=== PATIENT | male | born 1945 | race Caucasian/White ===

== ENCOUNTER 2016-06-05 13:17 | Outpatient (CLI) | payer MEDICARE, OTHER | END 2016-06-05 13:18 | disposition home or self-care (01) | DX: M17.12 Unilateral primary osteoarthritis, left knee (principal); M16.0 Bilateral primary osteoarthritis of hip; M47.816 Spondylosis without myelopathy or radiculopathy, lumbar region; M47.817 Spondylosis without myelopathy or radiculopathy, lumbosacral region ==

== ENCOUNTER 2016-06-23 12:06 | Outpatient (CLI) | payer MEDICARE, OTHER | END 2016-06-23 12:07 | disposition home or self-care (01) | DX: M51.26 Other intervertebral disc displacement, lumbar region (principal); M51.36 Other intervertebral disc degeneration, lumbar region; M47.896 Other spondylosis, lumbar region; M51.37 Other intervertebral disc degeneration, lumbosacral region ==

== ENCOUNTER 2018-06-25 12:45 | Emergency (ER) | payer MEDICARE, OTHER ==
[2018-06-25 12:55] VITALS: BP 155/90
--- NOTE | 2018-06-25 13:05 | ED Physician Documentation ---
PD HPI LOWER EXT INJURY - Stated complaint Stated Complaint: KNEE PX - Chief complaint Chief Complaint: Trauma Ext - History obtained from History obtained from: Patient - History of Present Illness PD HPI LOW EXT INJURY LOCATION: Right (He was helping a friend yesterday, and his left leg went into a hole. His right leg twisted and he fell hitting his head and shoulder. He does not have a headache. There is no loss of consciousness. His shoulder does not really hurt. He does have pretty significant right knee pain although declines pain medication and also injured his second toe on the right. He is able to walk but barely.) Review of Systems Constitutional: reports: Reviewed and negative Throat: reports: Reviewed and negative Cardiac: reports: Reviewed and negative Respiratory: reports: Reviewed and negative PD PAST MEDICAL HISTORY - Allergies Allergies/Adverse Reactions: Allergies Allergy/AdvReac Type Severity Reaction Status Date / Time No Known Drug Allergies Allergy Verified 06/25/18 12:55 - Social History Does the pt smoke?: No Smoking Status: Never smoker PD ED PE NORMAL - Vitals Vital signs reviewed: Yes - General General: Alert and oriented X 3, No acute distress - HEENT HEENT: PERRL, EOMI - Neck Neck: Supple, no meningeal sign, No bony TTP - Extremities Extremities: Other (Left shoulder is nontender with full range of motion. There is a large effusion of the right knee and tender anteriorly and medially. He has pain with anterior and posterior drawer signs, but they are not lax, neither is the MCL or PCL. Negative grind testing. The tip of the right second toe is tender and bruised. There is no subungual hematoma.) - Neuro Neuro: Alert and oriented X 3, Normal speech Results - Vitals Vitals: Vital Signs - 24 hr 06/25/18 12:53 Temperature 37.0 C Heart Rate 82 Respiratory 18 Rate Blood Pressure 155/90 H O2 Saturation 99 Oxygen O2 Source Room air - Rads (name of study) X-rays of the right knee and right second toe Radiology: EMP read contemporaneously (No obvious fracture in the right knee, there is a large joint effusion. He has a nondisplaced fracture of the second distal phalanx of the right second toe.) PD MEDICAL DECISION MAKING - ED course ED course: This is a 72-year-old gentleman who fell yesterday and injured his right knee and right toe. He did hit his head, but there is no clinical evidence of ongoing issue there without headache or anticoagulation. The knee has a large effusion corroborated on x-ray, no obvious fracture. The toe is broken as well, conservative care and soto taping were advised for this. He was placed in a knee immobilizer and orthopedic follow-up was advised. He declined pain medication. Departure - Departure Disposition: 01 Home, Self Care Clinical Impression: Toe fracture, right Qualifiers: Encounter type: initial encounter Toe: lesser toe Fracture type: closed Phalanx: distal Fracture alignment: nondisplaced Qualified Code(s): S92.534A - Nondisplaced fracture of distal phalanx of right lesser toe(s), initial encounter for closed fracture Knee injury Qualifiers: Encounter type: initial encounter Laterality: right Qualified Code(s): S89.91XA - Unspecified injury of right lower leg, initial encounter Condition: Good Record reviewed to determine appropriate education?: Yes Instructions: ED Meniscal Injury Knee Poss Follow-Up: [facility] [Provider Group] - Within 1 week Comments: Wrap the toe or keep it supported as discussed. Follow-up with the orthopedic surgeon within the week, call today or tomorrow for an appointment. Keep the knee splint on when you are up and around, you do not need to wear it in bed or while showering.
--- NOTE | 2018-06-25 13:59 | XRAY Report ---
Reason: knee inj Procedure Date: 06/25/2018 Accession Number: [id number] / [id number] Procedure: XR - Knee 4 View RT CPT Code: FULL RESULT: EXAM: RIGHT KNEE RADIOGRAPHY EXAM DATE: 06/25/2018 01:23 PM. CLINICAL HISTORY: Knee inj. COMPARISON: KNEE 2 VIEW LT 06/05/2016 1:30 PM. TECHNIQUE: 4 views. FINDINGS: Bones: No acute fracture visualized. Joints: There is a large joint effusion. No dislocation. Moderate to severe tricompartmental joint space narrowing and osteophyte formation. Soft Tissues: Mild soft tissue swelling. IMPRESSION: 1. No acute fracture identified. Large joint effusion. 2. Moderate to severe degenerative changes. RADIA
--- NOTE | 2018-06-25 14:06 | XRAY Report ---
Reason: 2nd toe inj Procedure Date: 06/25/2018 Accession Number: [id number] / [id number] Procedure: XR - Toe(s) RT CPT Code: FULL RESULT: EXAM: RIGHT TOE RADIOGRAPHY EXAM DATE: 06/25/2018 01:23 PM. CLINICAL HISTORY: 2nd toe inj. COMPARISON: None. TECHNIQUE: 3 views. FINDINGS: Hammertoe deformities mildly limit the exam. There is a nondisplaced fracture of the dorsal aspect of the second distal phalanx near the base. No additional fracture identified. Mild degenerative changes of the interphalangeal joints. No dislocation. IMPRESSION: Nondisplaced fracture of the second distal phalanx. RADIA
== END 2018-06-25 14:29 | disposition home or self-care (01) ==
LOC: ED 12:45
DX: S89.91XA Unspecified injury of right lower leg, initial encounter (principal); M25.461 Effusion, right knee; S92.534A Nondisplaced fracture of distal phalanx of right lesser toe(s), initial encounter for closed fracture; X50.1XXA Overexertion from prolonged static or awkward postures, initial encounter
CPT/HCPCS: 73660; 99283

== ENCOUNTER 2022-04-17 09:25 | Outpatient (CLI) | payer MEDICARE, OTHER ==
[2022-04-17 14:48] LABS: THYROID STIMULATING HORMONE 1.1 uIU/mL (0.34-5.60)
[2022-04-17 14:49] LABS: FREE T4 (FREE THYROXINE) 1.1 ng/dL (0.58-1.64)
== END 2022-04-17 09:26 | disposition home or self-care (01) ==
LOC: LAB.S 09:25
PROVIDERS: ATTEND Internal Medicine Endocrinology, Diabetes & Metabolism
DX: E05.80 Other thyrotoxicosis without thyrotoxic crisis or storm (principal)
CPT/HCPCS: 36415; 84439; 84443; 84480

== ENCOUNTER 2023-07-30 08:54 | Outpatient (CLI) | payer MEDICARE, OTHER | END 2023-07-30 08:55 | disposition home or self-care (01) | LOC: LAB.S 08:54 | PROVIDERS: ATTEND Internal Medicine | DX: I48.91 Unspecified atrial fibrillation (principal) | CPT/HCPCS: 36416; 85610 ==

== ENCOUNTER 2023-08-02 08:58 | Outpatient (CLI) | payer MEDICARE, OTHER | END 2023-08-02 08:59 | disposition home or self-care (01) | LOC: LAB.S 08:58 | PROVIDERS: ATTEND Internal Medicine | DX: I48.91 Unspecified atrial fibrillation (principal) | CPT/HCPCS: 36416; 85610 ==

== ENCOUNTER 2023-08-13 11:30 | Outpatient (CLI) | payer MEDICARE, OTHER | END 2023-08-13 11:31 | disposition home or self-care (01) | LOC: LAB.S 11:30 | PROVIDERS: ATTEND Internal Medicine | DX: I48.91 Unspecified atrial fibrillation (principal) | CPT/HCPCS: 36416; 85610 ==

== ENCOUNTER 2023-08-20 08:57 | Outpatient (CLI) | payer MEDICARE, OTHER | END 2023-08-20 08:58 | disposition home or self-care (01) | LOC: LAB.S 08:57 | PROVIDERS: ATTEND Internal Medicine | DX: I48.91 Unspecified atrial fibrillation (principal) | CPT/HCPCS: 36416; 85610 ==

== ENCOUNTER 2023-09-03 09:04 | Outpatient (CLI) | payer MEDICARE, OTHER | END 2023-09-03 09:05 | disposition home or self-care (01) | LOC: LAB.S 09:04 | PROVIDERS: ATTEND Internal Medicine | DX: I48.91 Unspecified atrial fibrillation (principal) | CPT/HCPCS: 36416; 85610 ==

== ENCOUNTER 2023-09-26 08:41 | Outpatient (CLI) | payer MEDICARE, OTHER | END 2023-09-26 08:42 | disposition home or self-care (01) | LOC: LAB.S 08:41 | PROVIDERS: ATTEND Internal Medicine | DX: I48.91 Unspecified atrial fibrillation (principal) | CPT/HCPCS: 36416; 85610 ==

== ENCOUNTER 2023-10-26 07:48 | Outpatient (CLI) | payer MEDICARE, OTHER | END 2023-10-26 07:49 | disposition home or self-care (01) | LOC: LAB.S 07:48 | PROVIDERS: ATTEND Internal Medicine | DX: I48.91 Unspecified atrial fibrillation (principal) | CPT/HCPCS: 85610 ==